=== PATIENT | female | born 1985 | race Caucasian/White ===

== ENCOUNTER 2018-10-10 23:56 | Emergency (ER) | payer OTHER ==
[~2018-10-10] VITALS: Ht 162.6 cm; Wt 92.5 kg
[2018-10-11] MEDS ORDERED: PROZAC10 MG PO (00:06)
[2018-10-11 00:58] LABS: URINE BILIRUBIN 1+ (Negative); URINE BLOOD NEGATIVE (Negative); URINE CLARITY CLEAR; URINE COLOR YELLOW; URINE GLUCOSE-RANDOM* NEGATIVE (Negative); URINE KETONES 3+ (Negative); URINE LEUKOCYTES-REFLEX NEGATIVE (Negative); URINE NITRITE-REFLEX NEGATIVE (Negative); URINE PROTEIN (DIPSTICK) TRACE (Negative); URINE SPECIFIC GRAVITY >= 1.030 (1.005-1.035)
[2018-10-11 01:20] LABS: ICTOTEST (BILI CONFIRMATORY) Positive (Negative)
[2018-10-11 02:08] LABS: ANION GAP 13 mmol/L (7-16); BUN 12 mg/dL (7-18); CALCIUM 8.8 mg/dL (8.5-10.1); CHLORIDE 101 mmol/L (98-107); CO2 24 mmol/L (21-32); CREATININE 0.9 mg/dL (0.6-1.0); GLUCOSE 90 mg/dL (74-106); POTASSIUM 3.3 mmol/L (3.5-5.1); SODIUM 138 mmol/L (136-145)
[2018-10-11 02:14] LABS: ABSOLUTE NEUTROPHILS 6.9 thou/uL (1.4-8.2); BASOPHILS 0.3 % (0.0-2.0); EOSINOPHILS 0.6 % (0.0-3.0); HEMATOCRIT 43.2 % (37.0-47.0); HEMOGLOBIN 15.1 gm/dL (12.0-15.0); LYMPHOCYTES 20.2 % (24.0-44.0); MCH 30.1 pg (26.0-34.0); MCV 86.1 fL (80.0-100.0); MONOCYTES 6.6 % (1.0-8.0); PLATELET COUNT 338 thou/uL (150-400); POLYS 72.3 % (36.0-66.0); RBC 5.02 mil/uL (4.20-5.00); RDW 13.1 % (10.5-14.5); WBC 9.6 thou/uL (4.0-11.0)
[2018-10-11 02:17] LABS: ALBUMIN 4.4 g/dL (3.4-5.0); LIPASE 185 U/L (73-393); SGOT 13 U/L (15-37); SGPT 17 U/L (30-65); TOTAL BILIRUBIN 0.8 mg/dL (<0.1-1.0); TOTAL PROTEIN 8.2 g/dL (6.4-8.2); TROPONIN-I <0.06 ng/mL (<0.06)
[2018-10-11 04:10] VITALS: BP 145/81
--- NOTE | 2018-10-12 13:28 | EKG ---
[address] [place] [address] ELECTROCARDIOGRAM REPORT Name: FAMILIA PEREIRACELYNN Madison Room #: DEP [facility]#: [id number] ������������������ Admission: 10/10/18 ������������������ Attend Phys: Discharge: 10/11/18 ������������������ Date of : 89 Report #: [id number] ����������������������������������������������������������������� [id number] THIS REPORT FOR: //name// [facility] ED Test Date: 2018-10-11 Test Time: 00:53:34 Pat Name: VIDAL PEREIRA Department: Room: Gender: F Night Time Nanny: DIPIKA : 1985 Requested By: Alcon Sanchez Order Number: [id number] MD: Rashaad Weiner Measurements Intervals [place] Rate: 50 P: 50 MO: 127 QRS: 75 QRSD: 97 T: 61 QT: 453 QTc: 414 Interpretive Statements Sinus bradycardia Otherwise no significant abnormality No previous ECG available for comparison Electronically Signed On 10-12-2018 13:28:22 CDT by Rashaad Weiner [email or web address] ��������������������������������������������� <ELECTRONICALLY SIGNED> ���������������������������������������� By: Rashaad Weiner MD, [facility] ��������������������������������������������� 10/12/18 1328 0053 0053 Rashaad Weiner MD, FACC /EPI
== END 2018-10-11 04:10 | disposition home or self-care (01) ==
LOC: ER 23:56
PROVIDERS: Emergency Medicine
DX: R11.10 Vomiting, unspecified (principal); R10.84 Generalized abdominal pain; F17.210 Nicotine dependence, cigarettes, uncomplicated; Z88.1 Allergy status to other antibiotic agents